=== PATIENT | male | born 1970 | race Caucasian/White ===

== ENCOUNTER 2017-07-21 16:08 | Emergency (ER) | payer OTHER ==
[~2017-07-21] VITALS: Ht 177.8 cm; Wt 86.2 kg
[2017-07-21] MEDS ORDERED: Augmentin 875-1 EACH PO (18:04)
[2017-09-23] MEDS ORDERED: Naprosyn500 MG PO (08:49)
== END 2017-07-21 18:40 | disposition home or self-care (01) ==
LOC: ER 16:08
DX: S01.352A Open bite of left ear, initial encounter (principal); S61.451A Open bite of right hand, initial encounter; W54.0XXA Bitten by dog, initial encounter
CPT/HCPCS: 12014; 99283

== ENCOUNTER 2017-07-31 09:50 | Emergency (ER) | payer OTHER ==
[~2017-07-31] VITALS: Ht 177.8 cm; Wt 86.2 kg
[~2017-07-31 09:50] MED LIST: Augmentin 875-1 EACH PO
== END 2017-07-31 11:38 | disposition home or self-care (01) ==
LOC: ER 09:50
DX: S01.312D Laceration without foreign body of left ear, subsequent encounter (principal); S61.411D Laceration without foreign body of right hand, subsequent encounter; Z79.2 Long term (current) use of antibiotics; Z98.890 Other specified postprocedural states
CPT/HCPCS: 99282

== ENCOUNTER 2017-10-22 10:21 | Emergency (ER) | payer OTHER ==
[~2017-10-22] VITALS: Ht 177.8 cm; Wt 86.2 kg
[~2017-10-22 10:21] MED LIST changes: +Naprosyn500 MG PO
[2017-10-22] MEDS ORDERED: Amoxil400 MG/5 M PO (11:17)
[2017-10-22] MEDS ORDERED: NYST237S MT (11:21)
== END 2017-10-22 11:20 | disposition home or self-care (01) ==
LOC: ER 10:21
DX: J02.0 Streptococcal pharyngitis (principal); Z87.891 Personal history of nicotine dependence
CPT/HCPCS: 87430; 99283; J1100

== ENCOUNTER 2021-02-06 07:42 | Day surgery (SDC) | payer OTHER ==
[~2021-02-06] VITALS: Ht 177.8 cm; Wt 93.9 kg
[~2021-02-06 07:42] MED LIST changes: +Amoxil400 MG/5 M PO; +NYST237S MT
[2021-02-06] MEDS ORDERED: VENL25 PO (08:23)
[2021-02-06] MEDS ORDERED: LISI5 PO (08:24)
[2021-02-06] MEDS ORDERED: Naltrexone HCl50 MG PO (08:24)
--- NOTE | 2021-02-06 09:25 | NUR ---
02/06/21 0925 [address] Rivas BUPIVACAINE 0.5 % 150 MG MIXED WITH EPI 0.[address] ISLAS ORDER TO CONSTITUTE BUPIVACAINE 0.5% 1:200,000 FOR INJECTION AT OPSITE BY DR ISLAS FOR PAIN CONTROL.
== END 2021-02-06 11:12 | disposition home or self-care (01) ==
LOC: ORSCSDS 07:42
PROVIDERS: Surgery
PROC: 0WQF0ZZ Repair Abdominal Wall, Open Approach (ICD-10-PCS; principal; 2021-02-06 09:00)
DX: K42.9 Umbilical hernia without obstruction or gangrene (principal); K43.2 Incisional hernia without obstruction or gangrene; I10 Essential (primary) hypertension; G47.33 Obstructive sleep apnea (adult) (pediatric); Z87.891 Personal history of nicotine dependence; Z79.899 Other long term (current) drug therapy
CPT/HCPCS: A9270; J0171; J0690; J1100; J1885; J2250; J2370; J2405; J2704; J3010

== ENCOUNTER 2022-06-17 09:07 | Day surgery (SDC) | payer OTHER ==
[~2022-06-17] VITALS: Ht 177.8 cm; Wt 94.0 kg
[~2022-06-17 09:07] MED LIST changes: +LISI5 PO; +Naltrexone HCl50 MG PO; +VENL25 PO
[2022-06-17] MEDS ORDERED: Children's Che1 EAC1 (09:25)
[2022-06-17] MEDS ORDERED: FISH OIL 1,2001 EAC4 (09:26)
[2022-06-17] MEDS ORDERED: SUMA25 (09:26)
[2022-06-17] MEDS ORDERED: B-12500 MC1 (09:27)
== END 2022-06-17 10:37 | disposition home or self-care (01) ==
LOC: ORSCSDS 09:07
PROVIDERS: Internal Medicine Gastroenterology
PROC: 0DBP8ZX Excision of Rectum, Via Natural or Artificial Opening Endoscopic, Diagnostic (ICD-10-PCS; principal; 2022-06-17 10:30)
PROC: 0DBN8ZX Excision of Sigmoid Colon, Via Natural or Artificial Opening Endoscopic, Diagnostic (ICD-10-PCS; principal; 2022-06-17 10:30)
DX: Z12.11 Encounter for screening for malignant neoplasm of colon (principal); K63.5 Polyp of colon; K62.1 Rectal polyp; K64.8 Other hemorrhoids; I10 Essential (primary) hypertension; Z87.891 Personal history of nicotine dependence
CPT/HCPCS: 88305; J2704; J7120